=== PATIENT | female | born 1985 | race African-American/Black ===

== ENCOUNTER → 2017-01-28 07:52 | Outpatient (CLI) | payer OTHER ==
[2014-01-19 08:03] VITALS: BMI 39.5
[~2017-01-28 07:52] MED LIST: PERCOCET 10/3251 TA1 PO; TOPAMAX50 MG PO
== END | disposition home or self-care (01) ==
LOC: D.NM 07:52
DX: R93.8 Abnormal findings on diagnostic imaging of other specified body structures (principal)